=== PATIENT | female | born 1995 | race Caucasian/White ===

== ENCOUNTER 2025-07-23 21:35 | Emergency (ER) | payer BC, SELFPAY ==
[2025-07-23 21:37] VITALS: BP 135/76; PULSE 108; RESP 22; TEMP 36.8; O2SAT 98; BMI 37.2
[2025-07-23 23:00] VITALS: BP 128/77; PULSE 97; RESP 20; O2SAT 96
[2025-07-23 23:18] LABS: Hematocrit 39.8 % (37-47); Hemoglobin 12.8 g/dL (12.0-15.0); Immature Granulocytes Count 0.050 X10^3/uL (0.0-0.0); Mean Corp Hgb Conc 32.2 g/dL (32-36); Mean Corpuscular Volume 86.0 fL (81-99); Mean Platelet Vol. 9.3 fl (6.2-12.0); NRBC Flagged by Analyzer 0 % (0-5); Platelet Count 342 K/mm3 (150-450); RBC Distribution Width CV 12.7 % (11.6-14.6); RBC Distribution Width SD 39.7 fl (35.1-43.9); Red Blood Count 4.63 M/mm3 (4.2-5.4); White Blood Count 13.2 K/mm3 (4.4-11.0)
[2025-07-23 23:22] LABS: Internal QC Validated? YES +Cl - CLEAR BKGD; Pregnancy, Serum, hCG Quali. NEGATIVE Negative; Record Kit Lot#, Serum Preg. 0000980607
[2025-07-24] VITALS: BP 121/78; PULSE 89; RESP 18; TEMP 36.6; O2SAT 97
[2025-07-24 00:14] LABS: AST(SGOT) 28 U/L (<=31); Alanine Aminotransfer ALT/SGPT 16 U/L (<=34); Albumin, Serum 4.3 g/dL (3.5-5.0); Alkaline Phosphatase 61 U/L (35-104); Anion Gap 11 (5-15); BUN 10 mg/dL (4-19); BUN/Creat Ratio 14.9 RATIO (10-20); Bilirubin, Direct 0.22 mg/dL (0.00-0.30); Calcium,Total 9.2 mg/dL (7.6-11.0); Carbon Dioxide 23.3 mmol/L (21.0-32.0); Chloride 104 mmol/L (98-108); Estimated Creatinine Clearance 115.99 ml/min (50-250); Globulin 2.6 g/dL (2.2-4.2); Glucose 106 mg/dL (70-99); Potassium 3.6 mmol/L (3.3-5.1)
--- NOTE | 2025-07-24 00:27 | EX.ED.DYSGE1 ---
HPI History of Present Illness Chief Complaint: Allergic Reaction Informant: patient and family Narrative Narrative: 30-year-old female presenting to the emergency room out of concern for allergic reaction. Patient states she took her first dose of Protonix today. She notes that she has felt different all day. This evening she was having dizziness and paresthesias. She felt flushed in the face. She was concerned that she may be having a significant reaction to the Protonix. No diarrhea. She notes allergies to Topamax and penicillin. Patient noticed that her heart rate was elevated as well as her blood pressure which she states is very atypical for her. She has been monitoring her vital signs since having preeclampsia. She delivered 18 months ago. [facility] Medical History GERD (gastroesophageal reflux disease) Pre-eclampsia Home Medications ?Medication ?Instructions ?Recorded ?Last Taken ?Type pantoprazole 40 mg tablet,delayed 40 mg PO DAILY 07/23/25 Unknown History release Allergy/AdvReac Type Severity Reaction Status Date / Time Penicillins Allergy Rash Verified 07/23/25 21:36 topiramate (From Topamax) AdvReac Other Verified 07/23/25 21:36 Surgical History Previous section H/O wisdom tooth extraction Social History household members: spouse, family and children Smoking Status: Former smoker ROS ROS ED Constitutional Constitutional ED: Reports other Details: Dizziness ; Denies chills, fever(s) or weight loss Eyes Eyes: Reports other; Denies change in vision or diplopia ENT ENT ED: Reports other Details: Facial flushing ; Denies ear pain, rhinorrhea or sore throat Cardiovascular Cardiovascular: Denies chest pain, orthopnea, palpitations or racing heartbeat Respiratory/Chest Respiratory/Chest: Denies cough, dyspnea or orthopnea Gastrointestinal Gastrointestinal: Denies abdominal pain, diarrhea, nausea or vomiting Genitourinary Genitourinary ED: Denies dysuria, hematuria or urinary frequency Musculoskeletal Musculoskeletal: Denies arthralgias or myalgias Integumentary Denies abscess or rash Neurologic Neurologic: Reports paresthesias; Denies headache(s) or weakness Psychiatric Psychiatric: Denies anxiety, depression, suicidal ideation or suicidal thoughts Endocrine Endocrinology: Denies polydipsia, polyphagia or polyuria Allergic/Immunologic Allergic/Immunologic ED: Denies mouth swelling, tongue swelling or urticaria EXAM Physical Exam Const Vital Signs: 07/23/25 21:37 07/23/25 23:00 Temperature 98.2 F Temperature Source Temporal Pulse Rate 108 H 97 Respiratory Rate 22 H 20 H Blood Pressure 135/76 H 128/77 H Blood Pressure Mean 95 94 Pulse Ox 98 96 Oxygen Delivery Method Room Air Positive well nourished and well developed General Appearance ED: well developed HEENT Reports normocephalic, head/scalp atraumatic and moist mucous membranes Eyes PERRL and EOMs intact bilaterally Neck no lymphadenopathy, supple and no JVD Resp normal respiratory effort and clear to auscultation bilaterally Cardio regular rate, regular rhythm and no murmurs Rate: tachycardic GI normal to inspection, nondistended, normoactive bowel sounds and non-tender Palpation: soft Back/Spine no CVA tenderness and normal ROM Extremity normal to inspection General Extremety ED: Negative for edema General Extremity: Negative for edema Neuro oriented x3, CN's II-XII intact bilaterally and no sensory deficits noted Sensorium / Orientation: alert Motor Exam: strength 5/5 throughout Psych mental status grossly normal Mood & Affect: Negative for depressed or tearful Skin no rashes or lesions noted and no wounds MDM MDM MDM Narrative Medical decision making narrative: Differential diagnosis includes cardiac dysrhythmia electrolyte abnormalities liver dysfunction allergic reaction hypertensive emergency Basic blood work shows a white count of 13.2. She had blood work done earlier this week and she states that compares to what was reported earlier. The rest of her labs are rather unremarkable including a glucose of 106. Normal liver enzymes test is negative. Patient was observed. Heart rate is down to the 90s blood pressure has been improved. Overall she states she feels better and less flushed. I think it is reasonable the patient not take her next dose of Protonix tomorrow she is concerned about a reaction. I would have her monitor her symptomology over the next several days and have a conversation with her doctor about whether or not she should continue it. Patient is comfortable with that plan. History & Record Review Discussion w/independent historian: Patient and Family Lab Data Attestation: I reviewed the patient's lab results. Labs: Laboratory Results - last 24 hr 07/23/25 23:05 WBC 13.2 H RBC 4.63 Hgb 12.8 Hct 39.8 MCV 86.0 MCH 27.6 MCHC 32.2 RDW Std Deviation 39.7 RDW Coeff of Nisha 12.7 Plt Count 342 MPV 9.3 Immature Gran % (Auto) 0.400 Neut % (Auto) 63.6 Lymph % (Auto) 26.0 Ralls % (Auto) 7.0 Eos % (Auto) 2.4 Baso % (Auto) 0.6 Absolute Neuts (auto) 8.4 H Absolute Lymphs (auto) 3.43 Nucleated RBC % 0 Sodium 138 Potassium 3.6 Chloride 104 Carbon Dioxide 23.3 Anion Gap 11 BUN 10 Creatinine 0.68 L Estim Creat Clear Calc 115.99 Est GFR (MDRD) Non-Af 119 BUN/Creatinine Ratio 14.9 Glucose 106 H Calcium 9.2 Total Bilirubin 0.55 Direct Bilirubin 0.22 AST 28 ALT 16 Alkaline Phosphatase 61 Total Protein 7.0 Albumin 4.3 Globulin 2.6 Serum , Qual NEGATIVE Discharge Plan Triage Chief Complaint: Allergic Reaction ED Provider: Porfirio Herbert Dx/Rx/DC Orders Clinical Impression: Facial flushing, Paresthesias, Tachycardia, Hypertension Prescriptions: No Action pantoprazole 40 mg tablet,delayed release (DR/EC) 40 mg PO DAILY Primary Care Provider: Keiko Russo Referrals: Keiko Russo MD [Primary Care Provider, Family Practice] - 3-5 Days if not improving Activity Restrictions/Additional Instructions: I would hold your Protonix tomorrow. I did have a discussion with your doctor about your symptoms once you have not taken the medicine for a couple days and you have gotten back to your normal self. Please monitor for any changes return if worsening or concerns Print Language: Luxembourgish Disposition Disposition: Home, Self Care
== END 2025-07-24 00:41 | disposition home or self-care (01) ==
PROVIDERS: Emergency Provider Emergency Medicine; PCP Pediatrics; Visit Provider Emergency Medicine
DX: R20.2 Paresthesia of skin (principal); T78.40XA Allergy, unspecified, initial encounter; Z87.891 Personal history of nicotine dependence; R00.0 Tachycardia, unspecified; K21.9 Gastro-esophageal reflux disease without esophagitis; Z79.899 Other long term (current) drug therapy; R23.2 Flushing; I10 Essential (primary) hypertension; R42 Dizziness and giddiness
CPT/HCPCS: 80048; 80076; 84703; 85025; 99283